=== PATIENT | male | born 1940 | race Caucasian/White ===

== ENCOUNTER 2017-04-25 20:54 | Emergency (ER) | payer MEDICARE, BC ==
[~2017-04-25] VITALS: Ht 172.7 cm; Wt 78.8 kg
[~2017-04-25 20:54] MED LIST: ALPR0.5T99 PO; EPIP0.3I IM; PRED20 PO; SIMV10TA PO
[2017-04-25 20:58] VITALS: BP 164/89; PULSE 79; RESP 18; TEMP 98.5; O2SAT 98
[2017-04-25] MEDS ORDERED: SIMV20TA PO (21:10)
[2017-04-25] MEDS ORDERED: DEXAMETHASONE SOD PHOS 4 MG/ML VIAL IM ONE (21:15)
[2017-04-25] MEDS ORDERED: PRED20 PO (21:16)
--- NOTE | 2017-04-25 21:24 | PD ---
HPI Chief Complaint: Skin Problem Time Seen by Provider: 21:18 Travel History International Travel<30 days: No Contact w/Intl Traveler<30days: No Traveled to known affect area: No History of Present Illness HPI 76-year-old male presents to the emergency room for evaluation of itchy rash to his face that started earlier today. Patient pleasant moisturizing body wash on his face and left on for 3 hours thinking that it was lotion. When he looked in the mirror and saw that his face was turning red, burning, and itching , she called his primary care physician who patched him through to poison control. Poison control told them to wash it off with soap and water which he did about 20 minutes prior to arrival. Patient states since then his face is burning so he came to the emergency room for evaluation. He denies history of diabetes. Patient denies chest pain, shortness breath, and sore throat. PFSH Past Medical History Anxiety: Yes Cancer: Yes (Skin) High Cholesterol: Yes Diminished Hearing: No Tetanus Vaccination: < 5 Years Influenza Vaccination: Yes Past Surgical History Abdominal Surgery: Yes (Hernia w/ mesh X's 2) Tonsillectomy: Yes Other Surgery: Yes (Trach) Social History Alcohol Use: Yes (Wine at night) Tobacco Use: No Substance Use: No Allergies-Medications (Allergen,Severity, Reaction): Coded Allergies: Percodan (Verified Allergy, Severe, Dizziness, 04/25/17) FELT WEIRD White-Faced Hornet (Verified Allergy, Severe, Swelling, 04/25/17) LOCALIZED SWELLING, SPREAD ENTIRE ARM. DENIES THROAT SWELLING OR DYSPNEA Epinephrine (Verified Allergy, Intermediate, Tachycardia, 04/25/17) REPORTS NO ALLERGY-JUST ADVERSE REACTION Reported Meds & Prescriptions Reported Meds & Active Scripts Active Prednisone 20 Mg Tab 40 Mg PO DAILY Take 40 mg (2 tablets) daily for 5 days Reported Simvastatin 20 Mg Tab 20 Mg PO DAILY Review of Systems Except as stated in HPI: all other systems reviewed are Neg Physical Exam Narrative GENERAL: Well-nourished, well-developed male in no acute distress. Afebrile. Ambulatory. SKIN: Focused skin assessment warm/dry. Slightly raised erythematous micropapular lesions on the entire face. HEAD: Normocephalic. EYES: No scleral icterus. No injection or drainage. ENT: Mucosa pink and moist. No erythema or exudates. No uvular edema. No uvular , palatal, or tonsillar deviation. Airway patent. NECK: Supple, trachea midline. No JVD or lymphadenopathy. CARDIOVASCULAR: Regular rate and rhythm without murmurs, gallops, or rubs. RESPIRATORY: Breath sounds equal bilaterally. No accessory muscle use. PSYCHIATRIC: No delusional thought processes. No hallucinations. Data Data Last Documented VS Vital Signs Date Time Temp Pulse Resp B/P Pulse Ox O2 Delivery O2 Flow Rate FiO2 04/25/17 20:58 98.5 79 18 164/89 98 Orders Dexamethasone Inj (Decadron Inj) (04/25/17 21:15) [facility] Medical Decision Making Medical Screen Exam Complete: Yes Emergency Medical Condition: Yes Medical Record Reviewed: Yes Differential Diagnosis Urticaria versus atopic dermatitis versus allergic dermatitis Narrative Course 76-year-old male presents to the emergency room for evaluation of allergic dermatitis. Patient left moisturizing soap on his face for 3 hours and began to cause burning, itching lesions. He washed it off with soap and water prior to coming to the emergency room. Physical exam reveals a papular, erythematous lesions to the face. No increased work of breathing or throat edema. Patient given Decadron emergency room. He was discharged with prescription for prednisone and told to only take it if symptoms persist in the morning. Told to throw it away otherwise. He understands and agrees to plan. Diagnosis Primary Impression: Allergic dermatitis Referrals: Primary Care Physician Patient Instructions: General Instructions, Urticaria (ED) Additional Instructions: Rest and drink plenty of fluids. If rash persists, take prednisone. Otherwise throw the prescription away. Take Benadryl as directed, as needed for pain. Follow-up with a primary care physician. Return to the emergency room for worsening symptoms. Med/Other Pt SpecificInfo: Prescription(s) given Scripts Prednisone 20 Mg Tab40 Mg PO DAILY #10 TAB Ref 0 Take 40 mg (2 tablets) daily for 5 days Prov:Dilip Tripathi MD 04/25/17 Disposition: 01 DISCHARGE HOME Condition: Stable Fernanda Corona April 25, 2017 21:24
== END 2017-04-25 21:30 | disposition home or self-care (01) ==
LOC: PHEFT 20:54
DX: L23.9 Allergic contact dermatitis, unspecified cause (principal); F41.9 Anxiety disorder, unspecified; E78.00 Pure hypercholesterolemia, unspecified; Z88.8 Allergy status to other drugs, medicaments and biological substances; Z79.899 Other long term (current) drug therapy
CPT/HCPCS: 96372; 99284; J1100